=== PATIENT | female | born 1965 | race Two or more races ===

== ENCOUNTER 2020-12-15 06:23 | Day surgery (SDC) | payer BC ==
[~2020-12-15 06:23] MED LIST: COZAAR50 MG PO
[2020-12-15] MEDS ORDERED: PERCOCET 5-3251 EACH PO (09:20)
[2020-12-15] MEDS ORDERED: DICLOFENAC SODI75 MG PO (09:21)
[2020-12-15] MEDS ORDERED: PROTONIX40 MG PO (09:21)
[2020-12-15] MEDS ORDERED: ZOFRAN4 MG PO (09:22)
== END 2020-12-15 12:50 | disposition home or self-care (01) ==
LOC: CIR.AMB 06:23
PROVIDERS: ATTEND Surgery
DX: K80.10 Calculus of gallbladder with chronic cholecystitis without obstruction (principal); K42.9 Umbilical hernia without obstruction or gangrene; Z20.828 Contact with and (suspected) exposure to other viral communicable diseases